=== PATIENT | male | born 1965 | race American Indian/Alaskan Native ===

== ENCOUNTER 2017-02-22 11:11 | Emergency (ER) | payer MEDICAID ==
[2017-02-22 11:12] VITALS: BMI 23.4
[2017-02-22 11:26] VITALS: RESP 19; TEMP 98; O2SAT 99
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
[2017-02-22 13:21] VITALS: BP 125/71; PULSE 75
--- NOTE | 2017-02-22 14:00 | RAD ---
PROCEDURE: Radiographs of the Right Shoulder HISTORY: Pain COMPARISON: 11/08/2016. FINDINGS: BONES: Bone alignment and mineralization are normal. There is no acute fracture or bone destruction. JOINTS: There is mild degenerative osteoarthrosis in the acromioclavicular joint. The glenohumeral joint is normal the SOFT TISSUES: Normal. OTHER FINDINGS: None. IMPRESSION: No acute fracture or dislocation. 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
--- NOTE | 2017-02-22 14:12 | RAD ---
PROCEDURE: Radiographs of the Lumbar Spine. HISTORY: Back pain COMPARISON: No prior. FINDINGS: BONES: There is straightening of the lumbar spine with loss of lumbar lordosis. Vertebral alignment is normal. Vertebral height is maintained. Bone mineralization is normal. There is no acute fracture, spondylolysis or spondylolisthesis. DISC SPACES: There is mild multilevel degenerative disc disease in the lower lumbar spine with anterior spurring, reduced disc heights and multilevel facet arthropathy, worse at L5-S1. OTHER FINDINGS: None. IMPRESSION: No acute fracture, spondylolysis or spondylolisthesis. Mild multilevel degenerative disc disease in the lower lumbar spine, worse at L5-S1.
== END 2017-02-22 13:23 | disposition home or self-care (01) ==
LOC: ED 11:11
DX: M54.5 Low back pain (principal); M25.511 Pain in right shoulder
CPT/HCPCS: 72110; 73030; 96372; 99282; J1885

== ENCOUNTER 2017-07-22 13:21 | Emergency (ER) | payer MEDICAID ==
[2017-07-22 13:52] VITALS: BMI 25.1
[2017-07-22 13:55] VITALS: TEMP 98.7
--- NOTE | 2017-07-22 14:11 | ED PDOC ---
Arrival/HPI - General Chief Complaint: Lower Extremity Problem/Injury Time Seen by Provider: 07/22/17 14:06 Historian: Patient - History of Present Illness Narrative History of Present Illness (Text): 07/22/17 14:07 52 y/o male, pmh including pancreatitis/chronic lower back pain, nkda, c/o rt. lower extremity pain x 2 days. Pt. stated that he has chronic rt. lower back pain for months, started to have rt. lower extremity pain, on and off with numbness and tingling, no urinary symptoms, no urinary bowel incontinence or retention, no other medical or psychological complaints. Past Medical History - Provider Review Nursing Documentation Reviewed: Yes - Infectious Disease Hx of Infectious Diseases: None - Tetanus Immunization Tetanus Immunization: Unknown - Past Medical History Past Medical History: No Previous - Musculoskeletal/Rheumatological Hx Falls: No - Gastrointestinal Hx Pancreatitis: Yes (1 episode of pancreatitis in 2010) - Psychiatric Hx Depression: No Hx Emotional Abuse: No Hx Physical Abuse: No Hx Substance Use: No - Past Surgical History Past Surgical History: No Previous - Anesthesia Hx Anesthesia: No - Suicidal Assessment Feels Threatened In Home Enviroment: No Family/Social History - Physician Review Nursing Documentation Reviewed: Yes Family/Social History: Unknown Family HX Smoking Status: Never Smoked Hx Alcohol Use: No Hx Substance Use: No Hx Substance Use Treatment: No Allergies/Home Meds Allergies/Adverse Reactions: Allergies No Known Allergies Allergy (Verified 07/22/17 13:52) Review of Systems - Review of Systems Constitutional: absent: Fatigue, Fevers Eyes: absent: Vision Changes ENT: absent: Hearing Changes Respiratory: absent: SOB, Cough Cardiovascular: absent: Chest Pain Gastrointestinal: absent: Abdominal Pain, Nausea, Vomiting Musculoskeletal: absent: Arthralgias, Back Pain, Myalgias Skin: absent: Rash, Pruritis Psychiatric: absent: Anxiety, Depression, Suicidal Ideation Physical Exam Vital Signs Reviewed: Yes Vital Signs Temp Pulse Resp BP Pulse Ox 07/22/17 13:54 98.7 F 89 19 124/80 100 Temperature: Afebrile Blood Pressure: Normal Pulse: Regular Appearance: Positive for: Well-Appearing, Non-Toxic Pain Distress: Severe Mental Status: Positive for: Alert and Oriented X 3 - Systems Exam Head: Present: Atraumatic, Normocephalic Pupils: Present: PERRL Extroacular Muscles: Present: EOMI Conjunctiva: Present: Normal Mouth: Present: Moist Mucous Membranes Neck: Present: Normal Range of Motion Respiratory/Chest: Present: Clear to Auscultation, Good Air Exchange. No: Respiratory Distress, Accessory Muscle Use Cardiovascular: Present: Regular Rate and Rhythm, Normal S1, S2. No: Murmurs Abdomen: Present: Normal Bowel Sounds. No: Tenderness, Distention, Peritoneal Signs Back: Present: Normal Inspection, Other (Thoracic to LS spine: no midline tenderness, no paraspinal tenderness, no ecchymosis, FROM without limitation, sensation intact, motor 5/5. ). No: Paraspinal Tenderness, Pain with Leg Raise , Decubitus Ulcer Upper Extremity: Present: Normal Inspection. No: Cyanosis, Edema Lower Extremity: Present: Normal Inspection, Other (RLE: no tenderness or swelling, no skin discoloration, negative daksha and calero signs, FROM without limitation, sensation intact, motor 5/5, +DPPT pulses, capillary refill) . No: Edema Neurological: Present: GCS=15, CN II-XII Intact, Speech Normal Skin: Present: Warm, Dry, Normal Color. No: Rashes Psychiatric: Present: Alert, Oriented x 3, Normal Insight, Normal Concentration Medical Decision Making ED Course and Treatment: 07/22/17 14:22 -RLE venuous doppler -LS spine CT -dilaudid 1mg IM 07/22/17 15:41 -RLE Venuous doppler: as per preliminary report, no acute DVT. -CT show: L2-3: Mild disc bulge L3-4: Moderate disc bulge L4-5: Asymmetric disc bulge to the right with right-sided foraminal stenosis. -Pain decreased, decadron IM and cane ordered. -I checked the [facility] which he only has 1 prescription of tylenol#3 from 2015, with his condition I will give him percocet. -Discharge home with naproxen, percocet, cane, stay hydrated, bed, rest, follow up with your own pmd and pain management within 2 days, return to the ER for any new or worsening signs or symptoms. - RAD Interpretation Radiology Orders: 07/22/17 14:12 LUMBAR SPINE W/O CONTRAST [CT] Stat DUPLEX LOWER EXTRM VEIN RIGHT [US] Stat PROCEDURE: CT Lumbar Spine without contrast HISTORY: lower back pain radiatin to RLE COMPARISON: None. TECHNIQUE: Axial computed tomography images were obtained of the lumbar spine without the use of intravenous contrast. Coronal and sagittal reformatted images were created and reviewed. Radiation dose: Total exam DLP = 453 mGy-cm. This CT exam was performed using one or more of the following dose reduction techniques: Automated exposure control, adjustment of the mA and/or kV according to patient size, and/or use of iterative reconstruction technique. FINDINGS: VERTEBRAE: Unremarkable. No fracture. Normal alignment. DISCS/SPINAL CANAL/NEURAL FORAMINA: L1-2: Unremarkable. L2-3: Mild disc bulge L3-4: Moderate disc bulge L4-5: Asymmetric disc bulge to the right with right-sided foraminal stenosis. Best seen image 61 series 4 L5-S1: Unremarkable. PARASPINAL SOFT TISSUES: Unremarkable. OTHER FINDINGS: None. IMPRESSION: Asymmetric disc bulge to the right at L4-5 with right-sided foraminal stenosis. Mild disc bulge at L2-3 and moderate disc bulge at L3-4 Recruiting And Selection Consultant: Radiologist - Medication Orders Current Medication Orders: Discontinued Medications Hydromorphone HCl (Dilaudid) 1 mg IM STAT STA Stop: 07/22/17 14:40 Last Admin: 07/22/17 14:40 Dose: 1 mg - PA / CROCHETER / Resident Statement MD/DO has reviewed & agrees with the documentation as recorded. Disposition/Present on Arrival - Present on Arrival Any Indicators Present on Arrival: No History of DVT/PE: No History of Uncontrolled Diabetes: No Urinary Catheter: No History of Decub. Ulcer: No History Surgical Site Infection Following: None - Disposition Have Diagnosis and Disposition been Completed?: Yes Diagnosis: Spinal stenosis, Lumbar disc herniation Disposition: HOME/ ROUTINE Disposition Time: 15:45 Patient Plan: Discharge Patient Problems: Current Active Problems Problem Status Onset Lumbar disc herniation Acute Spinal stenosis Acute Condition: IMPROVED Additional Instructions: Discharge home with naproxen, percocet, cane, stay hydrated, bed, rest, follow up with your own pmd and pain management within 2 days, return to the ER for any new or worsening signs or symptoms. Prescriptions: Naproxen 500 mg PO BID PRN #24 tab PRN Reason: Other oxyCODONE/Acetaminophen [Percocet 5/325 mg Tab] 1 tab PO QID PRN #13 tab PRN Reason: other Referrals: [facility], [Primary Care Provider] - Follow up with primary [facility] [Outside] - Follow up with primary Forms: [email or web address] (Spanish), WORK NOTE
[2017-07-22] MEDS ORDERED: HYDROmorphone 1 mg/ml ISec IVP STA (14:12)
[2017-07-22] MEDS ORDERED: HYDROmorphone 1 mg/ml ISec IM STA (14:39)
--- NOTE | 2017-07-22 14:54 | CT ---
PROCEDURE: CT Lumbar Spine without contrast HISTORY: lower back pain radiatin to RLE COMPARISON: None. TECHNIQUE: Axial computed tomography images were obtained of the lumbar spine without the use of intravenous contrast. Coronal and sagittal reformatted images were created and reviewed. Radiation dose: Total exam DLP = 453 mGy-cm. This CT exam was performed using one or more of the following dose reduction techniques: Automated exposure control, adjustment of the mA and/or kV according to patient size, and/or use of iterative reconstruction technique. FINDINGS: VERTEBRAE: Unremarkable. No fracture. Normal alignment. DISCS/SPINAL CANAL/NEURAL FORAMINA: L1-2: Unremarkable. L2-3: Mild disc bulge L3-4: Moderate disc bulge L4-5: Asymmetric disc bulge to the right with right-sided foraminal stenosis. Best seen image 61 series 4 L5-S1: Unremarkable. PARASPINAL SOFT TISSUES: Unremarkable. OTHER FINDINGS: None. IMPRESSION: Asymmetric disc bulge to the right at L4-5 with right-sided foraminal stenosis. Mild disc bulge at L2-3 and moderate disc bulge at L3-4
[2017-07-22 15:53] VITALS: BP 118/72; PULSE 76; RESP 18; O2SAT 98
--- NOTE | 2017-07-22 19:28 | US ---
PROCEDURE: Right lower extremity venous US HISTORY: Leg pain and swelling. Evaluate for DVT. PHYSICIAN(S): David Morin M.D. TECHNIQUE: Duplex sonography and color-flow Doppler with graded compression were used to evaluate the deep venous system of the right lower extremity. FINDINGS: The visualized deep venous system of the right lower extremity is sonographically normal and compressible. Normal waveforms and augmentation are seen. There is no sonographic evidence for deep venous thrombosis in the visualized segments of the right lower extremity. IMPRESSION: 1. No sonographic evidence for deep venous thrombosis in the visualized segments of the right lower extremity.
== END 2017-07-22 15:55 | disposition home or self-care (01) ==
LOC: ED 13:21
DX: M51.26 Other intervertebral disc displacement, lumbar region (principal); M48.06 Spinal stenosis, lumbar region
CPT/HCPCS: 72131; 93971; 96372; 99284; J1100; J1170

== ENCOUNTER 2017-11-27 19:45 | Emergency (ER) | payer MEDICAID ==
[2017-11-27 19:45] VITALS: BMI 25.1
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
[2017-11-27 20:11] VITALS: BP 136/81; PULSE 81; RESP 18; TEMP 99.1; O2SAT 99
--- NOTE | 2017-11-28 08:42 | RAD ---
PROCEDURE: Radiographs of the Lumbar Spine. HISTORY: Posttraumatic back pain. COMPARISON: 02/22/2017 lumbar spine x-rays FINDINGS: BONES: Normal alignment. No listhesis. No fracture. DISC SPACES: Unremarkable. OTHER FINDINGS: None. IMPRESSION: Unremarkable radiographs of the lumbar spine.No significant interval change compared to the prior examination(s).
== END 2017-11-27 20:49 | disposition home or self-care (01) ==
LOC: ED 19:45
DX: M54.5 Low back pain (principal)

== ENCOUNTER 2018-10-08 16:31 | Emergency (ER) | payer MEDICAID ==
[2018-10-08 16:31] VITALS: BMI 25.1
[2018-10-08 16:38] VITALS: TEMP 98.6
--- NOTE | 2018-10-08 16:52 | ED PDOC ---
Arrival/HPI - General Chief Complaint: Lower Extremity Problem/Injury Historian: Patient - History of Present Illness Narrative History of Present Illness (Text): 10/08/18 16:48 53y/o male, no significant pmh, ndka, c/o lt. knee injury s/p accidental fall last night. Pt. stated that he was walking, tripped, accidentally fall and landed on the left knee, stated that he was panic and stated that his vision was concentrated for few seconds but not head/neck/facial injury, no LOC, vision concentrated when he fall on the left knee, stated that he feels well now, no pain on the knee, no change in vision, no night sweat, no rash, no dizziness, no numbness or tingling, no palpitation, no other medical or psychological complaints. Past Medical History - Provider Review Nursing Documentation Reviewed: Yes - Infectious Disease Hx of Infectious Diseases: None - Tetanus Immunization Tetanus Immunization: Unknown - Past Medical History Past Medical History: No Previous - Cardiac Hx Cardiac Disorders: No - Pulmonary Hx Respiratory Disorders: No - Neurological Hx Neurological Disorder: No - HEENT Hx HEENT Disorder: No - Renal Hx Renal Disorder: No - Endocrine/Metabolic Hx Endocrine Disorders: No - Hematological/Oncological Hx Blood Disorders: No - Integumentary Hx Dermatological Disorder: No - Musculoskeletal/Rheumatological Hx Musculoskeletal Disorders: Yes Hx Back Pain: Yes - Gastrointestinal Hx Gastrointestinal Disorders: Yes Hx Pancreatitis: Yes - Genitourinary/Gynecological Hx Genitourinary Disorders: No - Psychiatric Hx Psychophysiologic Disorder: No Hx Substance Use: No - Past Surgical History Past Surgical History: No Previous - Anesthesia Hx Anesthesia: No - Suicidal Assessment Feels Threatened In Home Enviroment: No Family/Social History - Physician Review Nursing Documentation Reviewed: Yes Family/Social History: Unknown Family HX Smoking Status: Never Smoked Hx Alcohol Use: No Hx Substance Use: No Hx Substance Use Treatment: No Allergies/Home Meds Allergies/Adverse Reactions: Allergies No Known Allergies Allergy (Verified 10/08/18 16:33) Home Medications: Home Meds Medication Instructions Recorded Confirmed No Known Home Med 10/08/18 10/08/18 Review of Systems - Review of Systems Constitutional: absent: Fatigue, Fevers Eyes: absent: Vision Changes, Photophobia, Eye Pain ENT: absent: Hearing Changes, Sore Throat, Rhinorrhea Respiratory: absent: SOB, Cough Cardiovascular: absent: Chest Pain Gastrointestinal: absent: Abdominal Pain, Nausea, Vomiting Skin: absent: Rash, Pruritis Neurological: absent: Headache, Dizziness Psychiatric: absent: Anxiety, Depression, Suicidal Ideation Physical Exam Vital Signs Reviewed: Yes Vital Signs Temp Pulse Resp BP Pulse Ox 10/08/18 16:34 98.6 F 73 16 119/83 97 Temperature: Afebrile Blood Pressure: Normal Pulse: Regular Respiratory Rate: Normal Appearance: Positive for: Well-Appearing, Non-Toxic, Comfortable Pain Distress: None Mental Status: Positive for: Alert and Oriented X 3 - Systems Exam Head: Present: Atraumatic, Normocephalic Pupils: Present: PERRL, Other (bilateral vision 20/25 w/o correction vs. lt. eye vision w/o correction 20/25 vs. rt. eye vision w/o correction, negative yessi sign, no signs of injury of corneas, no gaze or nystagmus. ) Extroacular Muscles: Present: EOMI Conjunctiva: Present: Normal Ears: Present: NORMAL TM, Normal Canal. No: Erythema Mouth: Present: Moist Mucous Membranes, Normal Lips, Normal Tounge, Normal Teeth. No: Trismus Pharnyx: No: ERYTHEMA, EXUDATE, TONSILS ENLARGED Nose (External): Present: Atraumatic. No: Abrasion, Contusion, Laceration, Lesions Nose (Internal): Present: Normal Inspection, No Active Bleeding. No: Rhinorrhea, Septal Hematoma, Epistaxis Neck: Present: Normal Range of Motion, Trachea Midline. No: Meningeal Signs, MIDLINE TENDERNESS, Paraspinal Tenderness, Lymphadenopathy Respiratory/Chest: Present: Clear to Auscultation, Good Air Exchange. No: Respiratory Distress, Accessory Muscle Use Cardiovascular: Present: Regular Rate and Rhythm, Normal S1, S2. No: Murmurs Abdomen: No: Tenderness, Distention, Peritoneal Signs Back: Present: Normal Inspection. No: CVA Tenderness, Midline Tenderness, Paraspinal Tenderness, Pain with Leg Raise, Decubitus Ulcer Upper Extremity: Present: Normal Inspection. No: Cyanosis, Edema Lower Extremity: Present: Normal Inspection, NORMAL PULSES, Neurovascularly Intact, Capillary Refill < 2 s, Other (Bilateral lower extremities: no tenderness or swelling, no joint laxity, no abrasion or laceration, negative daksha and calero signs, FROM without limitation, sensation intact, motor 5/5.). No: Edema, Swelling, Deformity, Temperature Abnormalties Neurological: Present: GCS=15, CN II-XII Intact, Speech Normal, Motor Func Grossly Intact, Gait Normal, Memory Normal, Other (no drift, normal finger to nose test, normal heel to candelario test. ) Skin: Present: Warm, Dry, Normal Color. No: Rashes Psychiatric: Present: Alert, Oriented x 3, Normal Insight, Normal Concentration Medical Decision Making ED Course and Treatment: 10/08/18 17:02 -Neurological examination is unremarkable, no focal neurological deficits, eye exam is unremarkable. -Story doesn't make much sense, advised to obtain CT head but he declined, discussed with Dr. Stearns about this case and story which he recommend to discharge the patient. -Discharge home with education on follow up with your own pmd and neurologist/opthalmologist within 2 days, return to the Er for any new or worsening signs or symptoms. - PA / [employer] WORK[employer] APPRENTICE / Resident Statement MD/DO has reviewed & agrees with the documentation as recorded. Disposition/Present on Arrival - Present on Arrival Any Indicators Present on Arrival: No History of DVT/PE: No History of Uncontrolled Diabetes: No Urinary Catheter: No History of Decub. Ulcer: No History Surgical Site Infection Following: None - Disposition Have Diagnosis and Disposition been Completed?: Yes Diagnosis: General medical exam, Non-compliance Disposition: HOME/ ROUTINE Disposition Time: 16:54 Patient Problems: Current Active Problems Problem Status Onset General medical exam Acute Condition: GOOD Additional Instructions: -Discharge home with education on follow up with your own pmd and neurologist/opthalmologist within 2 days, return to the Er for any new or wors ening signs or symptoms. Referrals: Kwasi Aly MD [Staff Provider] - Follow up with primary Verónica Rodriguez MD [Staff Provider] - Follow up with primary Forms: [employer] (German), WORK NOTE
[2018-10-08 17:06] VITALS: BP 118/76; PULSE 70; RESP 18; O2SAT 99
== END 2018-10-08 17:06 | disposition home or self-care (01) ==
LOC: ED 16:31
DX: Z04.89 Encounter for examination and observation for other specified reasons (principal); Z91.14 Patient's other noncompliance with medication regimen